=== PATIENT | female | born 1965 | race Caucasian/White ===

== ENCOUNTER → 2019-04-24 08:30 | Outpatient (CLI) | payer BC | END | disposition home or self-care (01) | LOC: D.MAMMO 08:30 | PROVIDERS: ATTEND Nurse Practitioner Family | DX: Z12.31 Encounter for screening mammogram for malignant neoplasm of breast (principal) ==

== ENCOUNTER → 2020-03-25 08:48 | Outpatient (CLI) | payer BC | END | disposition home or self-care (01) | LOC: D.CT 08:48 → D.MRI 09:00 → D.CT 09:00 | PROVIDERS: ATTEND Student in an Organized Health Care Education/Training Program | DX: N82.3 Fistula of vagina to large intestine (principal) ==

== ENCOUNTER → 2020-05-06 21:47 | Outpatient (CLI) | payer BC | END | disposition home or self-care (01) | LOC: D.MAMMO 04-29 09:30 | PROVIDERS: ATTEND Student in an Organized Health Care Education/Training Program | DX: Z12.31 Encounter for screening mammogram for malignant neoplasm of breast (principal) ==